=== PATIENT | female | born 1970 | race Caucasian/White ===

== ENCOUNTER 2019-03-09 06:51 | Observation (INO) | payer BC ==
[2019-03-09] MEDS ORDERED: SEVOFLURANE 15 MIN (07:00)
[2019-03-09] MEDS ORDERED: MIDAZOLAM 1 MG/ML 2 ML INJ (08:51)
[2019-03-09] MEDS ORDERED: PROPOFOL 20 ML (08:51)
[2019-03-09] MEDS ORDERED: ROCURONIUM 50 MG INJ (08:51)
[2019-03-09] MEDS ORDERED: CEFAZOLIN 1 GM INJ (08:51)
[2019-03-09] MEDS ORDERED: FENTAnyl 50 MCG/ML VIAL (08:51)
[2019-03-09] MEDS ORDERED: ONDANSETRON 4 MG INJ (08:56)
[2019-03-09] MEDS ORDERED: METOCLOPRAMIDE 10 MG INJ (08:56)
[2019-03-09] MEDS ORDERED: DEXAMETHASONE 4 MG/ML 5 ML INJ (08:56)
[2019-03-09] MEDS ORDERED: MEPERIDINE 25 MG INJ IV (09:00)
[2019-03-09] MEDS ORDERED: FENTAnyl 50 MCG/ML VIAL IV ×3 (09:00)
[2019-03-09] MEDS ORDERED: EPHEDrine 25 MG/5 ML SYG IV (09:00)
[2019-03-09] MEDS ORDERED: HYDROmorphONE 1 MG/5 ML IV SYRINGE IV ×2 (09:00)
[2019-03-09] MEDS ORDERED: METOCLOPRAMIDE 10 MG INJ IV (09:00)
[2019-03-09] MEDS ORDERED: ONDANSETRON 4 MG INJ IV (09:00)
[2019-03-09] MEDS ORDERED: SOD CHLORIDE 0.9% 1,000 ML IV (09:00)
[2019-03-09] MEDS ORDERED: LABETALOL HCL 20MG INJ IV (09:00)
[2019-03-09] MEDS ORDERED: DIPHENHYDRAMINE 50 MG INJ IV ×2 (09:00→12:00)
[2019-03-09] MEDS: BUPIVACAINE 0.25% (MPF) 30 ML INJ (10:35)
[2019-03-09] MEDS ORDERED: SUGAMMADEX SODIUM 200 MG/2 ML VIAL IV (11:20)
[2019-03-09] MEDS ORDERED: morphine 2 MG INJ IV (11:30)
[2019-03-09] MEDS ORDERED: LORAZEPAM 2 MG INJ (11:35)
[2019-03-09] MEDS: LORAZEPAM 2 MG INJ IV (11:43)
[2019-03-09] MEDS ORDERED: MIDAZOLAM 1 MG/ML 2 ML INJ IV (12:00)
[2019-03-09] MEDS: HYDROmorphONE 1 MG/5 ML IV SYRINGE IV (12:17)
[2019-03-09 13:09] LABS: ADD MAN DIFF? NO
[2019-03-09 13:10] LABS: BASOPHILS % 0.3 % (0.0-2.0); EOSINOPHILS % 0.2 % (0.0-7.0); HEMATOCRIT 37.4 % (37.0-47.0); HEMOGLOBIN 11.7 g/dl (12.0-16.0); LYMPHOCYTES # 0.8 10^3/ul (0.8-2.9); LYMPHOCYTES % 6.3 % (15.0-51.0); MEAN CORPUSCULAR HGB CONC 31.3 g/dl (32.0-37.0); MEAN CORPUSCULAR VOLUME 86.2 fl (82.0-101.0); MEAN PLATELET VOLUME 9.8 fl (7.4-10.4); MONOCYTE # 0.1 10^3/ul (0.3-0.9); MONOCYTES % 0.7 % (0.0-11.0); NEUTROPHIL # 11.7 10^3/ul (1.6-7.5); NEUTROPHILS % 91.5 % (39.0-77.0); PLATELET COUNT 339 10^3/UL (140-415); RED BLOOD COUNT 4.34 10^6/ul (4.20-5.40); RED CELL DISTRIBUTION WIDTH 13.4 % (11.5-14.5)
[2019-03-09 13:10] LABS: WHITE BLOOD COUNT 12.8 10^3/ul (4.8-10.8)
[2019-03-09] MEDS: SOD CHLORIDE 0.9% 1,000 ML IV ×2 (13:35→21:30)
[2019-03-09 13:40] LABS: ALANINE AMINOTRANSFERASE 29 IU/L (13-69); ALBUMIN 3.9 g/dl (3.3-4.9); ALBUMIN/GLOBULIN RATIO 1.21; ALKALINE PHOSPHATASE 118 IU/L (42-121); ANION GAP 7 (5-13); ASPARTATE AMINO TRANSFERASE 27 IU/L (15-46); BILIRUBIN,INDIRECT 0.3 mg/dl (0-1.1); BILIRUBIN,TOTAL 0.3 mg/dl (0.2-1.3); BLOOD UREA NITROGEN 7 mg/dl (7-20); CALCIUM 7.8 mg/dl (8.4-10.2); CARBON DIOXIDE 23 mmol/L (21-31); CHLORIDE 109 mmol/L (97-110); Estimated GFR > 60 mL/min (>60); GLUCOSE 125 mg/dl (70-220); POTASSIUM 4.2 mmol/L (3.5-5.1); SODIUM 139 mmol/L (135-144); TOTAL PROTEIN 7.1 g/dl (6.1-8.1)
[2019-03-09] MEDS: CEFAZOLIN 2 GM/50 ML (PMX) 50 ML IVPB ×3 (15:58→21:52)
[2019-03-09] MEDS: HYDROCODONE/APAP (5/325) TAB PO (18:35)
[2019-03-09] MEDS: CEPASTAT LOZENGE MT (21:46)
[2019-03-10] MEDS: SOD CHLORIDE 0.9% 1,000 ML IV (02:09)
[2019-03-10] MEDS: HYDROCODONE/APAP (5/325) TAB PO ×3 (04:54→18:13)
[2019-03-10] MEDS: CEFAZOLIN 2 GM/50 ML (PMX) 50 ML IVPB (05:33)
[2019-03-10 05:36] LABS: ADD MAN DIFF? NO
[2019-03-10 05:43] LABS: BASOPHILS % 0.1 % (0.0-2.0); HEMATOCRIT 35.6 % (37.0-47.0); HEMOGLOBIN 11.5 g/dl (12.0-16.0); LYMPHOCYTES # 1.3 10^3/ul (0.8-2.9); LYMPHOCYTES % 8.2 % (15.0-51.0); MEAN CORPUSCULAR HEMOGLOBIN 27.8 pg (29.0-33.0); MEAN CORPUSCULAR HGB CONC 32.3 g/dl (32.0-37.0); MEAN PLATELET VOLUME 10.2 fl (7.4-10.4); MONOCYTE # 0.7 10^3/ul (0.3-0.9); MONOCYTES % 4.4 % (0.0-11.0); NEUTROPHIL # 13.3 10^3/ul (1.6-7.5); PLATELET COUNT 389 10^3/UL (140-415); RED BLOOD COUNT 4.14 10^6/ul (4.20-5.40); RED CELL DISTRIBUTION WIDTH 13.4 % (11.5-14.5)
[2019-03-10 05:43] LABS: WHITE BLOOD COUNT 15.2 10^3/ul (4.8-10.8)
[2019-03-10 06:22] LABS: ALANINE AMINOTRANSFERASE 24 IU/L (13-69); ALBUMIN 3.6 g/dl (3.3-4.9); ALBUMIN/GLOBULIN RATIO 1.05; ALKALINE PHOSPHATASE 104 IU/L (42-121); ANION GAP 9 (5-13); ASPARTATE AMINO TRANSFERASE 25 IU/L (15-46); BILIRUBIN,INDIRECT 0.3 mg/dl (0-1.1); BILIRUBIN,TOTAL 0.3 mg/dl (0.2-1.3); BLOOD UREA NITROGEN 9 mg/dl (7-20); CALCIUM 7.7 mg/dl (8.4-10.2); CARBON DIOXIDE 24 mmol/L (21-31); CHLORIDE 108 mmol/L (97-110); CREATININE 0.45 mg/dl (0.44-1.00); Estimated GFR > 60 mL/min (>60); GLUCOSE 132 mg/dl (70-220); POTASSIUM 3.8 mmol/L (3.5-5.1); SODIUM 141 mmol/L (135-144)
[2019-03-10 15:24] LABS: CALCIUM 7.4 mg/dl (8.4-10.2)
[2019-03-10] MEDS: CALCIUM/VITAMIN D (500/200) TAB PO (21:28)
[2019-03-11 05:25] LABS: ADD MAN DIFF? NO
[2019-03-11 05:39] LABS: WHITE BLOOD COUNT 8.8 10^3/ul (4.8-10.8)
[2019-03-11 05:39] LABS: BASOPHIL # 0.1 10^3/ul (0.0-0.1); BASOPHILS % 0.8 % (0.0-2.0); EOSINOPHILS # 0.1 10^3/ul (0.0-0.5); EOSINOPHILS % 1.5 % (0.0-7.0); HEMATOCRIT 33.6 % (37.0-47.0); HEMOGLOBIN 10.5 g/dl (12.0-16.0); LYMPHOCYTES # 3.4 10^3/ul (0.8-2.9); LYMPHOCYTES % 39.2 % (15.0-51.0); MEAN CORPUSCULAR HEMOGLOBIN 27.3 pg (29.0-33.0); MEAN CORPUSCULAR HGB CONC 31.3 g/dl (32.0-37.0); MEAN CORPUSCULAR VOLUME 87.3 fl (82.0-101.0); MEAN PLATELET VOLUME 10.5 fl (7.4-10.4); MONOCYTE # 0.5 10^3/ul (0.3-0.9); MONOCYTES % 5.9 % (0.0-11.0); NEUTROPHIL # 4.6 10^3/ul (1.6-7.5); NEUTROPHILS % 52.3 % (39.0-77.0); PLATELET COUNT 333 10^3/UL (140-415); RED BLOOD COUNT 3.85 10^6/ul (4.20-5.40); RED CELL DISTRIBUTION WIDTH 13.8 % (11.5-14.5)
[2019-03-11 06:20] LABS: ANION GAP 6 (5-13); BLOOD UREA NITROGEN 13 mg/dl (7-20); CALCIUM 8.4 mg/dl (8.4-10.2); CARBON DIOXIDE 28 mmol/L (21-31); CHLORIDE 105 mmol/L (97-110); Estimated GFR > 60 mL/min (>60); GLUCOSE 106 mg/dl (70-220); POTASSIUM 3.6 mmol/L (3.5-5.1); SODIUM 139 mmol/L (135-144)
[2019-03-11] MEDS: HYDROCODONE/APAP (5/325) TAB PO ×2 (06:30→15:39)
[2019-03-11] MEDS: CEPASTAT LOZENGE MT (08:00)
[2019-03-11] MEDS: CALCIUM/VITAMIN D (500/200) TAB PO (09:13)
== END 2019-03-11 16:10 | disposition home or self-care (01) ==
LOC: SDS 06:51 → REC 11:23 → MS1 12:47
DX: C73 Malignant neoplasm of thyroid gland (principal)
CPT/HCPCS: 14040; 71045; 80048; 80053; 82310; 84703; 85025; 88307; 93005; 99217

== ENCOUNTER → 2019-05-22 | Outpatient (CLI) | payer BC | END | disposition home or self-care (01) | LOC: NUC 13:52 | DX: C73 Malignant neoplasm of thyroid gland (principal) | CPT/HCPCS: 78018 ==